=== PATIENT | female | born 2000 | race Native Hawaiian/Other Pacific Islander ===

== ENCOUNTER 2022-04-30 15:51 | Emergency (ER) | payer OTHER ==
[~2022-04-30] VITALS: Ht 157.5 cm; Wt 47.6 kg
[2022-04-30 17:13] VITALS: BP 108/70; TEMP 98.7
== END 2022-04-30 17:13 | disposition home or self-care (01) ==
LOC: ED 15:51
DX: O23.41 Unspecified infection of urinary tract in pregnancy, first trimester (principal); N39.0 Urinary tract infection, site not specified
CPT/HCPCS: 81002; 81015; 81025; 87077; 87086; 87088; 87185; 96372; 99284; J0696